=== PATIENT | female | born 1950 | race Caucasian/White ===

== ENCOUNTER 2019-07-03 | Emergency (ER) | payer MEDICARE, MEDICAID ==
[~2019-07-03] MED LIST: ALBUTEROL SUL0.083 % IN; LEVOTHYROXIN75 MCG PO; PREDNISONE50 MG PO; TESSALON PER100 MG PO; ZITHROMAX250 MG PO
[2019-07-03] MEDS ORDERED: VOLTAREN1%GEL TOP (10:19)
== END 2019-07-03 11:40 | disposition home or self-care (01) ==
DX: M25.561 Pain in right knee (principal)